=== PATIENT | male | born 1980 | race African-American/Black ===

== ENCOUNTER 2017-07-10 21:57 | Emergency (ER) | payer SELFPAY, MEDICAID | END 2017-07-11 03:46 | disposition left against medical advice (07) | LOC: FTE 21:57 | DX: Z53.21 Procedure and treatment not carried out due to patient leaving prior to being seen by health care provider (principal) ==

== ENCOUNTER 2017-08-18 22:36 | Emergency (ER) | payer SELFPAY ==
[2017-08-19] MEDS: IPRATROPIUM (NEB) 0.5 MG/2.5 ML AMP NEB (00:08)
[2017-08-19] MEDS: ALBUTEROL 0.083% (NEB) 2.5 MG/3 ML AMP NEB (00:08)
== END 2017-08-19 01:35 | disposition home or self-care (01) ==
LOC: FTE 22:36
DX: J20.9 Acute bronchitis, unspecified (principal); H65.01 Acute serous otitis media, right ear; M54.5 Low back pain; J45.909 Unspecified asthma, uncomplicated; R06.02 Shortness of breath
CPT/HCPCS: 94664; 99284-25

== ENCOUNTER 2018-08-29 03:28 | Emergency (ER) | payer SELFPAY | END 2018-08-29 06:51 | disposition home or self-care (01) | LOC: FTE 03:28 | DX: L03.116 Cellulitis of left lower limb (principal); J45.909 Unspecified asthma, uncomplicated | CPT/HCPCS: 99283 ==

== ENCOUNTER 2018-12-14 17:33 | Emergency (ER) | payer SELFPAY ==
[2018-12-14 19:39] LABS: ADD UMIC NO; UR ASCORBIC ACID NEGATIVE (NEGATIVE); UR BILIRUBIN (Dip) NEGATIVE (NEGATIVE); UR BLOOD (Dip) NEGATIVE (NEGATIVE); UR CLARITY CLEAR (CLEAR); UR COLOR YELLOW (YELLOW); UR GLUCOSE (Dip) NEGATIVE (NEGATIVE); UR KETONES (Dip) NEGATIVE (NEGATIVE); UR LEUKOCYTE ESTERASE (Dip) NEGATIVE Leu/ul (NEGATIVE); UR NITRITE (Dip) NEGATIVE (NEGATIVE); UR SPECIFIC GRAVITY (Dip) 1.017 (1.003-1.030); UR TOTAL PROTEIN (Dip) NEGATIVE (NEGATIVE); UR UROBILINOGEN (Dip) NEGATIVE (NEGATIVE)
== END 2018-12-14 20:20 | disposition home or self-care (01) ==
LOC: FTE 17:33
DX: R39.15 Urgency of urination (principal)
CPT/HCPCS: 81003; 87086; 87591; 99283